=== PATIENT | female | born 1980 | race African-American/Black ===

== ENCOUNTER 2017-02-26 08:10 | Emergency (ER) | payer SELFPAY ==
[2017-02-26 08:24] VITALS: BP 124/84
[2017-02-26] MEDS ORDERED: ACETAMINOPHEN 325 MG TABLET PO ONE (08:57)
--- NOTE | 2017-02-26 08:57 | ER Document Report ---
HPI - HPI Patient complains to provider of: foot pain Pain Level: 5 Context: Patient is a 37-year-old female presents emergency department complaining of right foot pain. Patient states that she is walking last night when she stubbed her right big toe on the edge of an exercise bike. She admits to pain with ambulation at this time and swelling. She states that she has not taken anything for pain today. Denies any other previous injuries to this foot. - DERM Skin Color: Normal Past Medical History - Social History Smoking Status: Unknown if Ever Smoked Chew tobacco use (# tins/day): No Frequency of alcohol use: None Drug Abuse: None Family History: Reviewed & Not Pertinent Pulmonary Medical History: Reports: Hx Asthma Renal/ Medical History: Denies: Hx Peritoneal Dialysis Surgical Hx: Negative - Immunizations Hx Diphtheria, Pertussis, Tetanus Vaccination: Yes Vertical Provider Document - CONSTITUTIONAL Agree With Documented VS: Yes Exam Limitations: No Limitations General Appearance: WD/WN, No Apparent Distress - INFECTION CONTROL TRAVEL OUTSIDE OF THE [place] IN LAST 30 DAYS: No - RESPIRATORY O2 Sat by Pulse Oximetry: 94 - CARDIOVASCULAR Pulses: Normal: Dorsalis pedis - Capillary refill less than 2 seconds in all lower extremity digits - MUSCULOSKELETAL/EXTREMETIES Musculoskeletal/Extremeties: MAEW, FROM, Tender - Over the proximal phalanx of the big toe on the right foot, Edema. negative: Eccymosis - NEURO Level of Consciousness: Awake, Alert, Appropriate Motor/Sensory: No Motor Deficit, No Sensory Deficit. negative: Sensory Deficit - DERM Integumentary: Warm, Dry, No Rash Course - Re-evaluation Re-evalutation: 02/26/17 9:00 Patient is a 37-year-old female is hemodynamically stable, no acute distress and afebrile. Presentation today along with x-ray shows evidence of a transverse fracture of the right great toe proximal phalanx without extension into the PIP joint. Discussed results with patient at the bedside. Vitals wnl. At this time, I do not see an indication for labs or further imaging. Will discharge with conservative measures, return precautions, and follow-up recommendations. - Vital Signs Vital signs: Temp Pulse Resp BP Pulse Ox 98.0 F 84 124/84 94 02/26/17 08:23 02/26/17 08:23 02/26/17 08:23 02/26/17 08:23 - Diagnostic Test Radiology reviewed: Image reviewed, Reports reviewed Discharge - Discharge Clinical Impression: Toe fracture Qualifiers: Encounter type: initial encounter Toe: great toe Fracture type: closed Phalanx : proximal Fracture alignment: nondisplaced Laterality: right Qualified Code(s) : S92.414A - Nondisplaced fracture of proximal phalanx of right great toe, initial encounter for closed fracture Condition: Good Disposition: HOME, SELF-CARE Instructions: Ice & Elevation ([facility]), Fractured Toe ([facility]) Prescriptions: Acetaminophen with Codeine [Tylenol #3 Tablet] 1 each PO Q4HP PRN #15 tablet PRN Reason: Forms: Return to Work
--- NOTE | 2017-02-26 09:32 | RADIOLOGY REPORT (SQ) ---
EXAM DESCRIPTION: FOOT RIGHT COMPLETE COMPLETED DATE/TIME: 02/26/2017 9:15 am REASON FOR STUDY: pain COMPARISON: None. NUMBER OF VIEWS: Three views. TECHNIQUE: AP, lateral and oblique radiographic images acquired of the right foot. LIMITATIONS: None. FINDINGS: MINERALIZATION: Normal. BONES: There is a transverse fracture, right great toe proximal phalanx. Fracture line is near the i nterphalangeal joint. No definite intra-articular extension. JOINTS: No malalignment. SOFT TISSUES: Great toe soft tissue swelling. No radiopaque foreign body or soft tissue gas OTHER: Prominent plantar calcaneal spur without fracture IMPRESSION: Transverse fracture right great toe proximal phalanx without extension into the interpha langeal joint. TECHNICAL DOCUMENTATION: JOB ID: [id number] [employer]- All Rights Reserved
== END 2017-02-26 10:33 | disposition home or self-care (01) ==
LOC: ER 08:10
DX: S92.414A Nondisplaced fracture of proximal phalanx of right great toe, initial encounter for closed fracture (principal); M79.671 Pain in right foot; W22.8XXA Striking against or struck by other objects, initial encounter
CPT/HCPCS: 99283

== ENCOUNTER → 2018-07-15 | Outpatient (CLI) | payer BC ==
--- NOTE | 2018-07-15 17:45 | RADIOLOGY REPORT (SQ) ---
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 TECHNIQUE: Dynamic and static pimentel-scale images acquired of the thyroid gland. Selected additional c olor/power Doppler images recorded. All images stored to PACS. LIMITATIONS: None. FINDINGS: RIGHT LOBE: Normal size, 3.9 x 1.4 x 1.2 cm. Homogeneous echotexture. No cystic or solid masses. LEFT LOBE: Normal size, 4 x 1.4 x 1.3 cm. Homogeneous echotexture. No cystic or solid masses. ISTHMUS: Normal size, 4 mm. Homogeneous echotexture. No cystic or solid masses. OTHER: No other significant finding. IMPRESSION: NORMAL THYROID ULTRASOUND. TECHNICAL DOCUMENTATION: JOB ID: [id number] [employer]- All Rights Reserved Reading location - IP/workstation name: [email or web address]
== END ==
LOC: RAD 15:58
PROVIDERS: ATTEND Internal Medicine
DX: E04.9 Nontoxic goiter, unspecified (principal)
CPT/HCPCS: 76536

== ENCOUNTER → 2019-05-25 | Outpatient (CLI) | payer MEDICAID ==
--- NOTE | 2019-05-25 12:57 | RADIOLOGY REPORT (SQ) ---
EXAM DESCRIPTION: U/S OB 14+ TRNABD 1GES W/O DOP COMPLETED DATE/TIME: 05/25/2019 10:14 am REASON FOR STUDY: ENCTR FOR SUPERVISION OF OTHER NORMAL , 1ST TRIMESTER (Z34.81) Z34.81 EN COUNTER FOR SUPRVSN OF NORMAL , FIRST TRIM COMPARISON: None. TECHNIQUE: Static and Dynamic grayscale imaging performed of gravid uterus using transabdominal appr oach. Additional selected color Doppler and spectral images recorded. All stored on PACS. LIMITATIONS: None. FINDINGS: FETUSES SEEN:1 EGA: 15 weeks 2 days Calculated using BPD,FL,HC,AC documented on images. No discrepancy with clinica l dates. RUDDY: 11/14/2019 EFW: Not calculated grams PERCENTILE: Not calculated LVP: 3.8 cm PLACENTA: Posterior grade 1 PRESENTATION: Variable ANATOMY: HEART RATE: 153 beats per minute. FOUR CHAMBER HEART: Not seen THREE VESSEL CORD: Yes. CORD INSERTION: Not seen. KIDNEYS AND BLADDER: Visualized. Appear normal. STOMACH: Visualized. Appears normal. SPINE: Not well seen. BRAIN AND LATERAL VENTRICLES: Lateral ventricles are normal. Cerebellum and cisterna magna not seen. OTHER: No other significant finding. MATERNAL ADNEXA: Maternal ovaries not visualized. CERVICAL LENGTH: 2.7 cm. Closed. OTHER: There is a hypoechoic area within the placenta that measures 19 x 18 x 13 mm. IMPRESSION: LIVING INTRAUTERINE . ESTIMATED GESTATIONAL AGE 15 weeks 2 days. No visualized anomalies. Some anatomical structures are not well seen. A venous Finnegan was seen withi n the placenta. Trimester of : Second trimester - 13 weeks 1 day to 27 weeks 6 days. TECHNICAL DOCUMENTATION: JOB ID: [id number] [employer]- All Rights Reserved Reading location - IP/workstation name: [email or web address]
== END ==
LOC: RAD 09:32
PROVIDERS: ATTEND Nurse Practitioner Family
DX: O09.522 Supervision of elderly multigravida, second trimester (principal); Z3A.15 15 weeks gestation of pregnancy
CPT/HCPCS: 76805

== ENCOUNTER 2019-10-04 11:51 | Outpatient (CLI) | payer MEDICAID ==
--- NOTE | 2019-10-04 14:38 | Non Stress Test Report ---
Non Stress Test Datetime Report Generated by CPN: 10/04/2019 14:38 DEMOGRAPHIC EGA NST: 34.0 INDICATION Indication for Study (NST) Other: Repeat NST NR in office VITAL SIGNS Temperature - NST: 98.3 Pulse - NST: 75 RESP - NST: 18 NBPSYS NST: 102 NBPDIA NST: 55 MONITORING Monitor Explained: Monitor Explained; Test Explained; Patient Verbalized Understanding Time on Monitor: 10/04/2019 12:20 Time off Monitor: 10/04/2019 12:59 NST Duration: 39 NST INTERVENTIONS NST Interventions: PO Hydration; Reposition Patient Physician Notified NST: Dr Blackwell BABY A: [id number] BABY A Movement : Present Contraction Frequency : 0 FHR Baseline : 135 Accelerations : 15X15 Decelerations : None Variability : Moderate 6-25bpm NST Review: Meets Criteria for Reactive NST NST Review and Verified By : Deisy Macedo RNC NST Results: Reactive NST REPORT Report Trigger: Send Report
== END 2019-10-04 13:07 | disposition home or self-care (01) ==
LOC: LC 11:51
PROVIDERS: ATTEND Obstetrics & Gynecology
DX: O24.419 Gestational diabetes mellitus in pregnancy, unspecified control (principal); Z3A.34 34 weeks gestation of pregnancy
CPT/HCPCS: 59025

== ENCOUNTER 2019-11-09 14:15 | Outpatient (CLI) | payer MEDICAID | END 2019-11-09 14:55 | disposition home or self-care (01) | LOC: LC 14:15 | PROVIDERS: ATTEND Obstetrics & Gynecology Gynecology | DX: O24.419 Gestational diabetes mellitus in pregnancy, unspecified control (principal); Z3A.37 37 weeks gestation of pregnancy | CPT/HCPCS: 59025 ==

== ENCOUNTER 2019-11-09 20:06 | Inpatient (IN) | payer MEDICAID ==
[2019-11-09] MEDS ORDERED: DINOPROSTONE 10 MG VAGINAL INSERT.SR ONE (20:16)
--- NOTE | 2019-11-09 20:17 | Non Stress Test Report ---
Non Stress Test Datetime Report Generated by CPN: 11/09/2019 20:16 DEMOGRAPHIC EGA NST: 39.1 INDICATION Indication for Study (NST) Other: IUP at 39.1; GDM VITAL SIGNS Temperature - NST: 98.7 Pulse - NST: 73 RESP - NST: 18 NBPSYS NST: 123 NBPDIA NST: 73 MONITORING Monitor Explained: Monitor Explained; Test Explained; Patient Verbalized Understanding Time on Monitor: 11/09/2019 14:28 Time off Monitor: 11/09/2019 14:50 NST Duration: 22 NST INTERVENTIONS NST Interventions: PO Hydration Physician Notified NST: Dr. Stauffer BABY A: [id number] BABY A Movement : Present Contraction Frequency : None FHR Baseline : 140 Accelerations : 15X15 Decelerations : None Variability : Moderate 6-25bpm NST Review: Meets Criteria for Reactive NST NST Review and Verified By : Deisy Camp RNC NST Results: Reactive NST COMMENTS NST Comments: to return at 2000 for IOL NST REPORT Report Trigger: Send Report
[2019-11-09] MEDS ORDERED: DINOPROSTONE 10 MG VAGINAL INSERT.SR PV PRN (20:25)
[2019-11-09] MEDS ORDERED: RINGERS SOLUTION,LACTATED 1,000 ML IV PRN (20:26)
[2019-11-09] MEDS ORDERED: PENICILLIN G POTASSIUM 5,000,000 UNIT in DEXTROSE 5%-WATER 100 ML IV ONE (20:26)
[2019-11-09] MEDS ORDERED: RINGERS SOLUTION,LACTATED 1,000 ML IV ONE (20:26)
[2019-11-09 20:43] LABS: APPEARANCE,URINE SLIGHTLY-CLOUDY; BILIRUBIN,URINE NEGATIVE (NEGATIVE); COLOR,URINE YELLOW; GLUCOSE, URINE NEGATIVE (NEGATIVE); KETONES,URINE NEGATIVE (NEGATIVE); LEUKOCYTE ESTERASE,URINE TRACE (NEGATIVE); NITRITE,URINE NEGATIVE (NEGATIVE); PROTEIN,URINE 30 mg/dL (NEGATIVE); URINE SPECIFIC GRAVITY 1.027
[2019-11-09 20:54] LABS: ABSOLUTE EOSINOPHILS # (AUTO) 0.1 10^3/uL (0.0-0.6); ABSOLUTE LYMPHOCYTES (AUTO) 1.9 10^3/uL (0.5-4.7); ABSOLUTE MONOCYTES (AUTO) 0.6 10^3/uL (0.1-1.4); ABSOLUTE NEUT (AUTO) 6.3 10^3/uL (1.7-8.2); BASOPHILS % (AUTO) 0.5 % (0-2); EOSINOPHILS % (AUTO) 0.9 % (0-6); HEMATOCRIT 34.3 % (36.0-47.0); HEMOGLOBIN 11.3 g/dL (12.0-15.5); LYMPHOCYTES % (AUTO) 21.1 % (13-45); MEAN CORPUSCULAR HEMOGLOBIN 24.8 pg (27.0-33.4); MEAN CORPUSCULAR HGB CONC 32.8 g/dL (32.0-36.0); MEAN CORPUSCULAR VOLUME 76 fl (80-97); MONOCYTES % (AUTO) 6.9 % (3-13); PLATELET COUNT 194 10^3/uL (150-450); RED BLOOD COUNT 4.54 10^6/uL (3.72-5.28); RED CELL DISTRIBUTION WIDTH 16.5 % (11.5-14.0); SEGMENTED NEUTROPHILS % (AUTO) 70.6 % (42-78); TOTAL CELLS COUNTED % (AUTO) 100 %
[2019-11-09 21:01] LABS: URINE AMPHETAMINES SCREEN NEGATIVE; URINE BARBITURATES SCREEN NEGATIVE; URINE BENZODIAZEPINES SCREEN NEGATIVE; URINE COCAINE SCREEN NEGATIVE; URINE MARIJUANA (THC) SCREEN NEGATIVE; URINE METHADONE SCREEN NEGATIVE; URINE PHENCYCLIDINE SCREEN NEGATIVE
[2019-11-09] MEDS ORDERED: PENICILLIN G-K 5 MILLION UNIT VIAL ONE (23:47)
[2019-11-10] MEDS ORDERED: PENICILLIN G-K 5 MILLION UNIT VIAL ONE (03:50)
[2019-11-10] MEDS: PENICILLIN G POTASSIUM 2,500,000 UNIT in DEXTROSE 5%-WATER 50 ML IV SCH ×4 (03:58→12:45)
--- NOTE | 2019-11-10 08:36 | Admission Physical ---
Datetime Report Generated by CPN: 11/10/2019 08:35 CURRENT ADMISSION Hx Assessment: The History has been Reviewed and is Current Chief Complaint: Scheduled Induction of Labor Indication for Induction: Polyhydramnios; Other Indication for Induction- Other: GDM-A2 Admit Impression : Term, Intrauterine Admit Plan: Admit to Unit; Initiate Labor Induction Protocol ALLERGIES Medication Allergies: No Medication Allergies: No Known Allergies (11/09/2019) Latex: No Latex Allergies OBSTETRICAL HISTORY EDC: 11/15/2019 00:00 : 5 Para: 4 Term: 4 : 0 SAB: 0 IAB: 0 Ectopic: 0 Livin Cesareans: 0 VBACs: 0 Multiple Births: 0 Gestational Diabetes: Yes Rh Sensitization: No Incompetent Cervix: No GIRISH: No Infertility: No ART Treatment: No Uterine Anomaly: No IUGR: No Hx Previous C/S: No Macrosomia: No Hx Loss/Stillborn: No PIH: No Hx : No Placenta Previa/Abruption: No Depression/PP Depression: No PTL/PROM: No Post Hemorrhage: No Current Procedures: Ultrasound; NST Obstetrical History Comments: [id number] [id number] G3-02/[id number] G4-08/[id number]-IWS G5-Current SEE RECORDS Alcohol: No Marijuana : No Cocaine: No Other Illicit Drugs: No Cigarettes: Never Smoker. [id number] MEDICAL HISTORY Diabetes: No Diabetes Type: Gestational Diabetes Blood Transfusion: No Pulmonary Disease (Asthma, TB): Yes Breast Disease: No Hypertension: No Sleeve Turner Surgery: No Heart Disease: No Hosp/Surgery: Yes Autoimmune Disorder: No Anesthetic Complications: No Kidney Disease: No Abnormal Pap Smear: No Neuro/Epilepsy: No Psychiatric Disorders: No Other Medical Diseases: No Hepatitis/Liver Disease: No Significant Family History: No Varicosities/Phlebitis: No Trauma/Violence : No Thyroid Dysfunction: No Medical History Comments: Childbirth Asthma INFECTIOUS HISTORY Gonorrhea: No Genital Herpes: No Chlamydia: No Tuberculosis: No Syphilis: No Hepatitis: No HIV/AIDS Exposure: No Rash or Viral Illness: No HPV: No PHYSICAL EXAM General: Normal Neurologic: Normal Heart: Normal Lungs: Normal Abdomen: Normal Genitourinary Exam: Normal Extremities: Normal Pelvic Type: Adequate Physical Exam Comments: pelvis proven to 7lbs 14oz Vital Signs: Reviewed; Within Normal Limits VAGINAL EXAM Contraction Comments: irregular MEMBRANES Membranes: Intact FETUS A EGA: 39.2 Monitoring: External US FHR- Baseline: 125 Variability: Minimal - Undetectable to <=5bpm Accelerations: Absent Decelerations: None Presentation: Vertex Admit Comment: 39yo @ 39w2d into L_D last night for IOL secondary to uncontrolled GDM-A2 and polyhydramnious. Pt. is O pos, RI, GBS positive with significant hx of obesity (BMI 36 @ NOB), asthma and anemia as well as a positive quad screen with negative maternit 21. Plan was to insert cervidil on admission which is ongoing at this time. Will remove and continue IOL with AROM and pitocin. Dr Britt is the OB institution librarian today and aware of admission. PLANS FOR LABOR AND DELIVERY Labor and Delivery: None Pain Management: Natural Feeding Preference: Both Benefit of Breast Feed Discussed: Yes Circumcision: N/A INFORMED CONSENT Assignment: Jessica Britt MD Signature: with User ID: Johnny : with User ID: Johnny
[2019-11-10] MEDS ORDERED: MISOPROSTOL 0.2 MG TABLET ONE (09:55)
[2019-11-10] MEDS ORDERED: OXYTOCIN/0.9 % SODIUM CHLORIDE 30 UNIT/500 ML RTUINJ ONE (09:55)
[2019-11-10] MEDS ORDERED: LIDOCAINE 1% INJ-PF (10 MG/ML) 30 ML SDV ONE (09:55)
[2019-11-10] MEDS ORDERED: OXYTOCIN 10 UNIT/ML VIAL ONE (09:55)
[2019-11-10] MEDS ORDERED: EPHEDRINE SULFATE INJ 50 MG/1 ML AMPULE ONE (12:25)
[2019-11-10] MEDS ORDERED: FENTANYL/BUPIVACAINE/NS/PF 300 MCG/150 ML RTUINJ EPI ONE (12:26)
[2019-11-10] MEDS ORDERED: BUPIVACAINE HCL 0.25 % INJ/PF (2.5 MG/1 ML) 30 ML VIAL ONE (12:26)
[2019-11-10] MEDS ORDERED: DIPHENHYDRAMINE HCL 50 MG/ML VIAL IV ONE (13:15)
[2019-11-10] MEDS ORDERED: DIPHENHYDRAMINE HCL 50 MG/ML VIAL ONE (13:16)
[2019-11-10] MEDS ORDERED: BENZOCAINE/MENTHOL AEROSOL SPRAY 56 ML TOP PRN (15:42)
[2019-11-10] MEDS ORDERED: ZOLPIDEM TARTRATE 5 MG TABLET PO PRN (15:42)
[2019-11-10] MEDS ORDERED: PROMETHAZINE HCL 25 MG SUPP.RECT PR PRN (15:42)
[2019-11-10] MEDS ORDERED: ACETAMINOPHEN 325 MG TABLET PO PRN (15:42)
[2019-11-10] MEDS ORDERED: NA PHOS,M-B/NA PHOS,DI-BA (ADULT) 133 ML ENEMA PR PRN (15:42)
[2019-11-10] MEDS ORDERED: DIPH/PERTUSS(ACELL)/TETANUS VAC/PF 0.5 ML SYR (>=10YO) IM PRN (15:42)
[2019-11-10] MEDS ORDERED: MAGNESIUM HYDROXIDE SUSP 30 ML UDCUP PO PRN (15:42)
[2019-11-10] MEDS ORDERED: GLYCERIN/WITCH HAZEL LEAF 1 EACH MED..WIPE TP PRN (15:42)
[2019-11-10] MEDS ORDERED: DIBUCAINE 1% OINTMENT 28 GM TP PRN (15:42)
[2019-11-10] MEDS ORDERED: DIPHENHYDRAMINE HCL 25 MG CAPSULE PO PRN (15:42)
[2019-11-10] MEDS ORDERED: PROMETHAZINE HCL 25 MG TABLET PO PRN (15:42)
[2019-11-10] MEDS ORDERED: PSEUDOEPHEDRINE HCL 30 MG TABLET PO PRN (15:42)
[2019-11-10] MEDS ORDERED: ACETAMINOPHEN WITH CODEINE #3 TABLET PO PRN (15:42)
[2019-11-10] MEDS ORDERED: MEASLES,MUMPS&RUBELLA VACC/PF 0.5 ML VIAL SUBCUT PRN (15:42)
[2019-11-10] MEDS ORDERED: PROMETHAZINE HCL INJ 25 MG/1 ML VIAL IV PRN (15:42)
[2019-11-10] MEDS ORDERED: OXYTOCIN/0.9 % SODIUM CHLORIDE 30 UNIT/500 ML RTUINJ IV PRN (15:42)
[2019-11-10] MEDS ORDERED: (PENDING PHARMACY ID) (Albuterol Sulfate 1 PUFF) IH PRN (15:43)
[2019-11-10] MEDS ORDERED: ALBUTEROL SULFATE HFA (90 MCG/PUFF) 200 PUFF/8.5 GM MDI IH PRN (15:49)
[2019-11-10] MEDS: DOCUSATE SODIUM 100 MG CAPSULE PO SCH (18:39)
[2019-11-10] MEDS: FERROUS SULFATE 325 MG TABLET PO SCH (18:39)
[2019-11-10] MEDS: IBUPROFEN 800 MG TABLET PO SCH (21:46)
[2019-11-10] MEDS: FAMOTIDINE 20 MG TABLET PO SCH (21:46)
[2019-11-11] MEDS: ACETAMINOPHEN WITH CODEINE #3 TABLET PO PRN ×2 (01:07→22:23)
[2019-11-11] MEDS: IBUPROFEN 800 MG TABLET PO SCH ×3 (05:58→22:24)
[2019-11-11 07:06] LABS: HEMATOCRIT 35.6 % (36.0-47.0); HEMOGLOBIN 11.4 g/dL (12.0-15.5); MEAN CORPUSCULAR HEMOGLOBIN 24.6 pg (27.0-33.4); MEAN CORPUSCULAR VOLUME 77 fl (80-97); PLATELET COUNT 174 10^3/uL (150-450); RED BLOOD COUNT 4.63 10^6/uL (3.72-5.28)
[2019-11-11] MEDS: SENNOSIDES/DOCUSATE 8.6-50 MG 1 EACH TABLET PO SCH (09:35)
[2019-11-11] MEDS: PRENATAL VITAMIN W DHA CAPSULE PO SCH (09:35)
[2019-11-11] MEDS: FAMOTIDINE 20 MG TABLET PO SCH ×2 (09:35→22:23)
[2019-11-11] MEDS: DOCUSATE SODIUM 100 MG CAPSULE PO SCH ×2 (09:35→18:15)
[2019-11-11] MEDS: FERROUS SULFATE 325 MG TABLET PO SCH ×2 (09:35→18:15)
--- NOTE | 2019-11-11 14:37 | PDOC PROGRESS REPORT ---
Subjective-OB Progress Note for:: 11/11/19 Subjective: reports bleeding slowing,pain controlled with current meds, denies needs Physical Exam (OB) Vital Signs: Temp Pulse Resp BP Pulse Ox 97.8 F 56 L 16 120/74 97 11/11/19 07:43 11/11/19 07:43 11/11/19 07:43 11/11/19 07:43 11/11/19 07:43 Intake & Output 11/10/19 11/11/19 11/12/19 06:59 06:59 06:59 Intake Total 800 500 Balance 800 500 Weight 100.7 kg - Abdomen Description: Tender, Soft Hernia Present: No Fundal Description: Firm, Midline Fundal Height: u/u - u/2 - Abdominal Distension: No distension - Extremities Lower extremities: Jayda's sign - neg Calf: Normal, Nontender Objective-Diagnostic Laboratory: 11/11/19 06:32 11/11/19 06:32 WBC 14.0 H RBC 4.63 Hgb 11.4 L Hct 35.6 L MCV 77 L MCH 24.6 L MCHC 32.0 RDW 17.0 H Plt Count 174 Assessment and Plan(PN) - Time Spent with Patient Time with patient: Less than 15 minutes - Disposition Anticipated Discharge: Home Within: within 24 hours
[2019-11-12] MEDS: IBUPROFEN 800 MG TABLET PO SCH ×2 (05:32→13:38)
[2019-11-12] MEDS: ACETAMINOPHEN WITH CODEINE #3 TABLET PO PRN ×2 (05:33→13:41)
[2019-11-12 07:52] VITALS: BP 123/75
[2019-11-12] MEDS: FERROUS SULFATE 325 MG TABLET PO SCH (10:10)
[2019-11-12] MEDS: DOCUSATE SODIUM 100 MG CAPSULE PO SCH (10:10)
[2019-11-12] MEDS: FAMOTIDINE 20 MG TABLET PO SCH (10:10)
[2019-11-12] MEDS: SENNOSIDES/DOCUSATE 8.6-50 MG 1 EACH TABLET PO SCH (10:10)
[2019-11-12] MEDS: PRENATAL VITAMIN W DHA CAPSULE PO SCH (10:10)
--- NOTE | 2019-11-12 10:26 | PDOC DISCHARGE SUMMARY ---
Impression - Admit/DC Date/PCP Admission Date/Primary Care Provider: 11/09/19 20:06 SHARLENE MARTINEZ Discharge Date: 11/12/19 - PP Day #2, doing well, O+, Rubella immune, breast and bottlefeeding - Additional Information Resuscitation Status: Full Code Discharge Diet: As Tolerated, Regular Discharge Activity: Activity As Tolerated, No Lifting Over 10 Pounds, Pelvic Rest Referrals: LOGAN WOODS ARNP [Primary Care Provider] - Prescriptions: Ibuprofen [Motrin 800 mg Tablet] 800 mg PO Q8 #60 tablet Acetaminophen with Codeine [Tylenol #3 Tablet] 1 each PO Q4HP PRN #30 tablet PRN Reason: Pain Scale Of 3 Home Medications: Albuterol Sulfate [Proair HFA Inhalation Aerosol 8.5 gm MDI] 1 puff IH Q4 PRN 11/09/19 Pnv No.95/Ferrous Fum/Folic AC [ Caplet] 1 cap PO DAILY 11/09/19 Acetaminophen with Codeine [Tylenol #3 Tablet] 1 each PO Q4HP PRN #30 tablet 11/12/19 Ibuprofen [Motrin 800 mg Tablet] 800 mg PO Q8 #60 tablet 11/12/19 HPI Reason(s) for Admission: Onset of Labor Procedures: Ultrasound Intrapartum Procedure(s): Spontaneous Vaginal Delivery Results Laboratory Results: WBC 14.0 10^3/uL (4.0-10.5) H 11/11/19 06:32 RBC 4.63 10^6/uL (3.72-5.28) 11/11/19 06:32 Hgb 11.4 g/dL (12.0-15.5) L 11/11/19 06:32 Hct 35.6 % (36.0-47.0) L 11/11/19 06:32 MCV 77 fl (80-97) L 11/11/19 06:32 MCH 24.6 pg (27.0-33.4) L 11/11/19 06:32 MCHC 32.0 g/dL (32.0-36.0) 11/11/19 06:32 RDW 17.0 % (11.5-14.0) H 11/11/19 06:32 Plt Count 174 10^3/uL (150-450) 11/11/19 06:32 Lymph % (Auto) 21.1 % (13-45) 11/09/19 20:42 [place] % (Auto) 6.9 % (3-13) 11/09/19 20:42 Eos % (Auto) 0.9 % (0-6) 11/09/19 20:42 Baso % (Auto) 0.5 % (0-2) 11/09/19 20:42 Absolute Neuts (auto) 6.3 10^3/uL (1.7-8.2) 11/09/19 20:42 Absolute Lymphs (auto) 1.9 10^3/uL (0.5-4.7) 11/09/19 20:42 Absolute Monos (auto) 0.6 10^3/uL (0.1-1.4) 11/09/19 20:42 Absolute Eos (auto) 0.1 10^3/uL (0.0-0.6) 11/09/19 20:42 Absolute Basos (auto) 0.0 10^3/uL (0.0-0.2) 11/09/19 20:42 Seg Neutrophils % 70.6 % (42-78) 11/09/19 20:42 POC Glucose 106 mg/dL (70-110) 11/10/19 13:25 Urine Color YELLOW 11/09/19 20:20 Urine Appearance SLIGHTLY-CLOUDY 11/09/19 20:20 Urine pH 6.0 (5.0-9.0) 11/09/19 20:20 Ur Specific [place] 1.027 11/09/19 20:20 Urine Protein 30 mg/dL (NEGATIVE) H 11/09/19 20:20 Urine Glucose (UA) NEGATIVE mg/dL (NEGATIVE) 11/09/19 20:20 Urine Ketones NEGATIVE mg/dL (NEGATIVE) 11/09/19 20:20 Urine Blood SMALL (NEGATIVE) H 11/09/19 20:20 Urine Nitrite NEGATIVE (NEGATIVE) 11/09/19 20:20 Urine Bilirubin NEGATIVE (NEGATIVE) 11/09/19 20:20 Urine Urobilinogen 4.0 mg/dL (<2.0) H 11/09/19 20:20 Ur Leukocyte Esterase TRACE (NEGATIVE) H 11/09/19 20:20 Urine Ascorbic Acid 20 (NEGATIVE) H 11/09/19 20:20 Urine Opiates Screen NEGATIVE 11/09/19 20:20 Urine Methadone Screen NEGATIVE 11/09/19 20:20 Ur Barbiturates Screen NEGATIVE 11/09/19 20:20 Ur Phencyclidine Scrn NEGATIVE 11/09/19 20:20 Ur Amphetamines Screen NEGATIVE 11/09/19 20:20 U Benzodiazepines Scrn NEGATIVE 11/09/19 20:20 Urine Cocaine Screen NEGATIVE 11/09/19 20:20 U Marijuana (THC) Screen NEGATIVE 11/09/19 20:20 RPR NONREACTIVE (NONREACTIVE) 11/09/19 20:42 Blood Type O POSITIVE 11/09/19 20:42 Antibody Screen NEGATIVE 11/09/19 20:42 Plan Health Concerns: d/c home. F/up with [facility] in 4 wks
--- NOTE | 2019-11-25 08:01 | Delivery Summary ---
Del Sum A-C Datetime Report Generated by CPN: 11/25/2019 08:01 DELIVERY PERSONNEL DELIVERY PERSONNEL: [id number] Delivery Doctor:: Keeley Lopez CNM Labor and Delivery Nurse:: Nargis aBrclay RNhostess host Nurse:: ANI Pina Nursery Nurse:: Asiya Malhotra RN Nursery Nurse:: Adilene Butler RN Women Specialist/SUPERVISOR AREA: Marybeth Nava CNA II MATERNAL INFORMATION Delivery Anesthesia: Epidural Medications After Delivery: Cytotec 1000mcg Per Rectum/Vagina Meds After Delivery Comment: pitocin 30u/500ml NSS Delivery QBL: 75 Maternal Complications: Abnormal Cord Length Complication Details: short cord Provider Comments: pt with multiple deep variable decelarations that continued after amnio infusion. We continued position changes and pt began pushing with Dr Waddell, I then took over with Dr. Waddell still in room and then patient quickly delivered a viable baby girl with vigorous respiratory effort and cry with tactile stimulation. Baby delivered in ELIO position thru nuchal cord and placed on maternal abdomen. Cord allowed to stop pulsating then clamped x2 and cut by FOB (3vc noted). Placenta delivered spontaneously intact(short cord noted and sent to pathology). Fundus firm @ u-1, bleeding stable. Vaginal and perineal inspection revealed no lacerations, mother and baby remain skin to skin and stable at this time. Nursery nurses also in room for delivery. LABOR SUMMARY EDC: 11/15/2019 00:00 No. Babies in Womb: 1 Attempted: No Labor Anesthesia: Epidural LABOR INFORMATION Reason for Induction: Maternal Diabetes; Polyhydramnios Onset of Labor: 11/10/2019 10:00 Complete Dilatation: 11/10/2019 15:21 Cervical Ripening Agents: Cervidil Oxytocin: Induction Group B Beta Strep: Positive Antibiotics # of Doses: 3 Antibiotics Time of Last Dose: 1200 Name of Antibiotic Given: penicillin Steroids Given: None Reason Steroids Not Administered: Not Applicable MEMBRANES Membranes Rupture Method: Artificial Rupture of Membranes: 11/10/2019 09:10 Length of Rupture (hr): 6.50 Amniotic Fluid Color: Clear Amniotic Fluid Amount: Moderate Amniotic Fluid Odor: Normal STAGES OF LABOR Stage 1 hr: 5 Stage 1 min: 21 Stage 2 hr: 0 Stage 2 min: 19 Stage 3 hr: 0 Stage 3 min: 5 Total Time in Labor hr: 5 Total Time in Labor min: 45 VAGINAL DELIVERY Episiotomy: None Laceration #1: None Laceration Extension #1: N/A Laceration #2: None Laceration #3: None Other Laceration: n/a Laceration Repair: Not Applicable Laceration Repair Note: n/a Sponge Count Correct: N/A Sharps Count Correct: N/A CSECTION DELIVERY Primary Indication: N/A Secondary Indication: N/A CSection Incidence: N/A Labor: N/A Elective: N/A CSection Incision: N/A BABY A INFORMATION Infant Delivery Date/Time: 11/10/2019 15:40 Method of Delivery: Vaginal Method of Delivery: Vaginal Nurse Controlled Delivery: No Born in Route : No : N/A Forceps: N/A Vacuum Extraction: N/A Shoulder Dystocia : No PRESENTATION/POSITION BABY A Presentation: Cephalic Presentation: Cephalic Cephalic Presentation: Vertex Vertex Position: Right Occipital Anterior Breech Presentation: N/A PLACENTA INFORMATION BABY A Placenta Delivery Time : 11/10/2019 15:45 Placenta Method of Delivery: Spontaneous Placenta Method of Delivery: Spontaneous Placenta Status: Delivered SCORES BABY A Heart Rate 1 min: >100 bpm Resp Effort 1 min: Good Cry Reflex Irritability 1 min: Cough or Sneeze or Pulls Away Muscle Tone 1 min: Active Motion Color 1 min: Body [place], Extremities Blue Resuscitation Effort 1 min: Tactile Stimulation SCORE 1 MIN: 9 Heart Rate 5 min: >100 bpm Resp Effort 5 min: Good Cry Reflex Irritability 5 min: Cough or Sneeze or Pulls Away Muscle Tone 5 min: Active Motion Color 5 min: Body [place], Extremities Blue SCORE 5 MIN: 9 INFORMATION BABY A Gestational Age at Delivery: 39.2 Gestational Status: Full Term- 39- 40.6 Weeks Infant Outcome : Liveborn Condition : Stable Sex: Female Sex: Female IDENTIFICATION BABY A Verification Date/Time: 11/10/2019 15:54 ID Band Number: [id number] Mother's Name Verified: Yes Infant RN Verifying Infant: EHill, PHYSICAL SECURITY SPECIALIST MMobley, RN WEIGHT/LENGTH BABY A Infant Birthweight (gm): 3002 Weight (lb): 6 Weight (oz): 10 Infant Length (in): 19.50 Length (cm): 49.53 CORD INFORMATION BABY A No. Cord Vessels: 3 Nuchal Cord : Around Neck x1, Tight Cord Blood Taken: Yes-For Eval (Mom's Blood Type - or O+) Infant Suction: None ASSESSMENT BABY A Infant Complications: None Physical Findings at Delivery: Within Normal Limits Infant Respirations: Appears Normal Skin to Skin: Yes Skin to Skin Time (min): 60 Utility Forester/ALS Called : No Care By: Jaleel Malhotra RN Transferred To: Remains with Mother BABY B INFORMATION : N/A SIGNATURES Assignment: Jessica Waddell MD Signature: with User ID: Johnny : with User ID: Johnny
== END 2019-11-12 17:24 | disposition home or self-care (01) | DRG 807 ==
LOC: LR 20:06 → 2S 11-10 17:50
PROVIDERS: ADMIT Obstetrics & Gynecology Gynecology; ATTEND Obstetrics & Gynecology Gynecology
PROC: 10E0XZZ Delivery of Products of Conception, External Approach (ICD-10-PCS; principal; 2019-11-10)
PROC: 3E033VJ Introduction of Other Hormone into Peripheral Vein, Percutaneous Approach (ICD-10-PCS; 2019-11-10)
PROC: 10907ZC Drainage of Amniotic Fluid, Therapeutic from Products of Conception, Via Natural or Artificial Opening (ICD-10-PCS; 2019-11-10)
DX: O99.824 Streptococcus B carrier state complicating childbirth (principal); Z37.0 Single live birth; O24.429 Gestational diabetes mellitus in childbirth, unspecified control; O40.3XX0 Polyhydramnios, third trimester, not applicable or unspecified; O69.3XX0 Labor and delivery complicated by short cord, not applicable or unspecified; O69.1XX0 Labor and delivery complicated by cord around neck, with compression, not applicable or unspecified; Z3A.39 39 weeks gestation of pregnancy
CPT/HCPCS: 1967; 36415; 80307; 81005; 82962; 85025; 85027; 86592; 86850; 86900; 86901; 88307; 94760; J1200; J2540; J2590; J3010; J3490; J7060